=== PATIENT | male | born 1985 | race Caucasian/White ===

== ENCOUNTER 2018-08-12 11:18 | Inpatient (IN) | payer OTHER ==
[~2018-08-12] VITALS: Ht 177.8 cm; Wt 112.5 kg
--- NOTE | 2018-08-12 11:39 | NUR ---
SE RECIBE PTE ALERRTA Y ORIENTADO X3,REFIERE QUE LE BELTRAN DADO DOLOR ASBDOMINAL X INTERVALOS ,REFIERE QUE SE BELTRAN PUESTO ENEMA.
--- NOTE | 2018-08-12 12:34 | NUR ---
SE ORIENTA PTE SOBRE TRATAMIENO. SE URSULA MUESTRAS DE RASHEED Y SE CANALIZA PERIFERALMENTE POR RN KRUGER QUIEN ADMINISTRA MEDICAMENTOS ORDENADOS. PTE PENDIENTE A RE-EVALAUCION POR MEDICO DE TURNO.
[2018-08-16] MEDS ORDERED: CIPROFLOXACIN500 MG PO (13:25)
[2018-08-16] MEDS ORDERED: FLAGYL500MG PO (13:25)
[2018-08-16] MEDS ORDERED: ZANTAC150 MG PO (13:26)
[2018-08-16] MEDS ORDERED: INTESTINEX680 M1 PO (13:26)
== END 2018-08-16 17:26 | disposition home or self-care (01) | DRG 391 ==
LOC: ER 11:18 → MEDI 20:05
PROVIDERS: ADMIT Internal Medicine
PROC: BW21Y0Z Computerized Tomography (CT Scan) of Abdomen and Pelvis using Other Contrast, Unenhanced and Enhanced (ICD-10-PCS; principal; 2018-08-12)
DX: K57.32 Diverticulitis of large intestine without perforation or abscess without bleeding (principal); A41.9 Sepsis, unspecified organism; N30.01 Acute cystitis with hematuria; K56.41 Fecal impaction; K52.89 Other specified noninfective gastroenteritis and colitis; D72.828 Other elevated white blood cell count

== ENCOUNTER 2018-10-19 14:20 | Outpatient (CLI) | payer OTHER ==
[~2018-10-19 14:20] MED LIST: CIPROFLOXACIN500 MG PO; FLAGYL500MG PO; INTESTINEX680 M1 PO; ZANTAC150 MG PO
== END 2018-10-19 14:30 | disposition home or self-care (01) ==
LOC: TOM 14:20
DX: K52.3 Indeterminate colitis (principal); K57.30 Diverticulosis of large intestine without perforation or abscess without bleeding; Z80.0 Family history of malignant neoplasm of digestive organs; K65.0 Generalized (acute) peritonitis